=== PATIENT | male | born 1955 | race African-American/Black ===

== ENCOUNTER 2018-07-19 03:33 | Emergency (ER) | payer MEDICARE, MEDICAID ==
[~2018-07-19] VITALS: Ht 185.4 cm; Wt 77.0 kg
[~2018-07-19 03:33] MED LIST: AMLO5TAB4; ATAZ300C; CALC667S; ETRA25TA PO; KETO30CR; NORV1; ZIAG3
[2018-07-19 03:39] VITALS: BP 123/72
== END 2018-07-19 05:30 | disposition left against medical advice (07) ==
LOC: ER 03:33
DX: Z53.21 Procedure and treatment not carried out due to patient leaving prior to being seen by health care provider (principal)